=== PATIENT | female | born 1970 | race Caucasian/White ===

== ENCOUNTER 2018-11-13 00:43 | Emergency (ER) | payer BC ==
--- NOTE | 2018-11-13 01:00 | ERPHSYRPT ---
- History of Present Illness Time Seen by Provider: 11/13/18 01:00 Source: patient, family Exam Limitations: no limitations Patient Subjective Stated Complaint: Numbness to right side of head, denies dizziness, vision problems or balance problems. 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 Alert and oriented x3, steady gait. No one sided weakness noted. Triage Nursing Assessment: See above Physician History: 48 y/o white female presents with sudden onset of sharp headache on top of her head which occurred at 2200 last pm. pain has lessened but now there is a numbness. no dizziness, no visual issues, no balance issues. pt is overweight but has lost a good deal of weight. pt has htn and anxiety issues but takes no meds for her anxiety. Timing/Duration: today Quality: sharpness Head Pain Location: occipital Severity of Pain-Max: moderate Severity of Pain-Current: mild Recent Head Trauma: no recent headache/trauma Associated Symptoms: No confusion, No dizziness, No facial pain, No loss of consciousness, No sensitive to light, No vision changes, No visual disturbance Previous symptoms: no prior history Allergies/Adverse Reactions: No Known Drug Allergies Allergy (Unverified 11/13/18 01:17) Home Medications: Acetaminophen 500 mg [Tylenol Extra Strength 500 mg] 500 mg PO Q6H PRN PRN 11/13/18 [History] Non-Formulary Drug [Non-Formulary Item] 1 each TOP DAILY 11/13/18 [History] Quinapril HCl 30 mg PO DAILY 11/13/18 [History] Ranitidine HCl [Zantac] 150 mg PO DAILY PRN PRN 11/13/18 [History] hydroCHLOROthiazide [Hydrochlorothiazide] 25 mg PO DAILY 11/13/18 [History] Hx Tetanus, Diphtheria Vaccination/Date Given: Yes (Within last 5 years) Hx Influenza Vaccination/Date Given: Yes Hx Pneumococcal Vaccination/Date Given: No Immunizations Up to Date: Yes - Review of Systems Constitutional: No Symptoms Eyes: No Symptoms Ears, Nose, & Throat: No Symptoms Respiratory: No Symptoms Cardiac: No Symptoms Abdominal/Gastrointestinal: No Symptoms Genitourinary Symptoms: No Symptoms Musculoskeletal: No Symptoms Skin: No Symptoms Neurological: No Symptoms Psychological: No Symptoms Endocrine: No Symptoms Hematologic/Lymphatic: No Symptoms Immunological/Allergic: No Symptoms All Other Systems: Reviewed and Negative - Past Medical History Pertinent Past Medical History: Yes Neurological History: No Pertinent History Cardiac History: No Pertinent History, High Cholesterol, Hypertension Respiratory History: Asthma Endocrine Medical History: No Pertinent History Musculoskeletal History: Arthritis GI Medical History: GERD - Past Surgical History Past Surgical History: No - Social History Smoking Status: Never smoker Drug Use: none - Female History Hx Last Menstrual Period: 01/2018 Hx Now: No - Nursing Vital Signs Nursing Vital Signs: Initial Vital Signs Temperature 98.1 F 11/13/18 00:50 Pulse Rate 83 11/13/18 00:50 Blood Pressure 172/92 11/13/18 00:50 O2 Sat by Pulse Oximetry 97 11/13/18 00:50 Pain Scale Pain Intensity 0 - Physical Exam General Appearance: no apparent distress, alert, anxiety Eye Exam: PERRL/EOMI, eyes nml inspection Ears, Nose, Throat Exam: normal ENT inspection, moist mucous membranes Neck Exam: normal inspection, non-tender, supple, full range of motion Respiratory Exam: normal breath sounds, lungs clear, airway intact, No chest tenderness, No respiratory distress, No accessory muscle use, No rhonchi, No wheezing, No stridor Cardiovascular Exam: regular rate/rhythm, normal heart sounds, normal peripheral pulses Gastrointestinal/Abdominal Exam: soft, normal bowel sounds, No tenderness, No guarding, No rebound Back Exam: normal inspection, normal range of motion, No CVA tenderness, No vertebral tenderness Extremity Exam: normal inspection, normal range of motion, pelvis stable Mental Status Exam: alert, oriented x 3, cooperative foil wrapper Exam: normal hearing, normal speech, PERRL, tongue midline Motor/Sensory Exam: no motor deficit, no sensory deficit, no pronator drift Skin Exam: normal color, warm Lymphatic Exam: No adenopathy SpO2 Interpretation: normal SpO2: 97 Oxygen Delivery: Room Air - Course Nursing assessment & vital signs reviewed: Yes Ordered Tests: Active Orders 24 hr Category Date Time Status HEAD WITHOUT CONTRAST [CT] Stat Exams 11/13/18 01:14 Taken Medication Summary Discontinued Medications Generic Name Dose Route Start Last Admin Trade Name Freq PRN Reason Stop Dose Admin Lorazepam 1 mg 11/13/18 01:16 11/13/18 01:44 Ativan 2 Mg/1 Ml Vial IM 11/13/18 01:17 1 mg STAT ONE Administration Lorazepam Confirm 11/13/18 01:23 Ativan 2 Mg/1 Ml Vial Administered 11/13/18 01:24 Dose 2 mg .ROUTE .STK-MED ONE - Progress Progress: improved, re-examined Air Movement: good Blood Culture(s) Obtained: No Antibiotics given: No Counseled pt/family regarding: diagnosis, need for follow-up, rad results - Departure Time of Disposition: 01:50 Departure Disposition: Home Clinical Impression: Headache, Hypertension, Anxiety Condition: Stable Critical Care Time: No Additional Instructions: follow up with primary doctor for further management. take your medications as prescribed
[2018-11-13] MEDS ORDERED: Ativan 2 MG/1 ML VIAL IM ONE (01:16)
[2018-11-13] MEDS ORDERED: Ativan 2 MG/1 ML VIAL ONE (01:23)
[2018-11-13 02:19] VITALS: BP 144/89; PULSE 58; O2SAT 98
--- NOTE | 2018-11-13 08:49 | XRAY ---
Indication: Right head pain and numbness. History of hypertension. Multiple contiguous axial images obtained through the head without contrast as ordered. Comparison: None Normal appearing brain parenchyma, ventricles, and bony calvarium. Visualized paranasal sinuses and mastoid air cells are clear. Impression: Normal CT head without contrast exam. Comment: Preliminary interpretation was made by [facility]. No discrepancy. CT DI 67.99
== END 2018-11-13 02:19 | disposition home or self-care (01) ==
LOC: ED 00:43
DX: R51 Headache (principal); I10 Essential (primary) hypertension; Z79.899 Other long term (current) drug therapy; F41.9 Anxiety disorder, unspecified
CPT/HCPCS: 70450; 96372; 99284; J2060

== ENCOUNTER 2019-06-21 05:47 | Day surgery (SDC) | payer BC ==
[2019-06-21] MEDS ORDERED: Lactated Ringers 1,000 ML IV SCH (06:30)
[2019-06-21] MEDS ORDERED: DIPRIVAN 200 MG/20 ML IV ONE ×2 (08:30→08:32)
[2019-06-21] MEDS ORDERED: SUBLIMAZE 100 MCG/2 ML ONE (08:33)
[2019-06-21] MEDS ORDERED: Lactated Ringers 1,000 ML IV ONE (08:37)
[2019-06-21 09:28] VITALS: O2SAT 96
[2019-06-21 09:36] VITALS: BP 147/92; PULSE 75
--- NOTE | 2019-06-21 10:35 | OP ---
SURGERY DATE/TIME: 06/21/2019 0825 PREOPERATIVE DIAGNOSIS: Screening. POSTOPERATIVE DIAGNOSIS: Symptomatic hemorrhoids. PROCEDURE: Colonoscopy. SURGEON: Max Martinez M.D. ANESTHESIA: MAC. COMPLICATIONS: None. CONDITION: Stable. INDICATION: The patient is 48 year-old basically needs screening. She has had a little blood per rectum and she has had pruritus of the anus. DESCRIPTION OF PROCEDURE: Taken to endoscopy. MAC sedation provided. Excellent anesthesia level was present. Scope introduced. Anal digital examination satisfactory. Scope advanced to the cecum. Base of cecum, ileocecal valve normal. Ascending, hepatic, transverse, splenic, descending, sigmoid, rectum, anus moderate internal hemorrhoids. These have been slightly irritated. They certainly have been the source of the blood and I believe the source of the itching. Grossly the anal area looked normal. There are no leukoplakic areas and I did not see anything of concern. IMPRESSION: Symptomatic hemorrhoids. PLAN: Internal hemorrhoid symptomatic treatment. Follow up C-scope in ten years or if different symptoms occur.
== END 2019-06-21 09:45 | disposition home or self-care (01) ==
LOC: SDC 05:47
PROVIDERS: ATTEND Surgery
DX: Z12.11 Encounter for screening for malignant neoplasm of colon (principal); K64.8 Other hemorrhoids; K62.5 Hemorrhage of anus and rectum; L29.0 Pruritus ani
CPT/HCPCS: 84703; J2704; J3010